=== PATIENT | male | born 1940 | race Caucasian/White ===

== ENCOUNTER 2021-02-04 00:16 | Emergency (ER) | payer BC, OTHER ==
[~2021-02-04] VITALS: Ht 160 cm; Wt 68.0 kg
[2021-02-04 01:00] VITALS: BP 115/71
[2021-02-04] MEDS ORDERED: ONDA4TAB5 PO (01:06)
[2021-02-04] MEDS ORDERED: CEPH500T PO (01:06)
== END 2021-02-04 01:16 | disposition home or self-care (01) ==
LOC: ER 00:29
DX: T63.481A Toxic effect of venom of other arthropod, accidental (unintentional), initial encounter (principal); L03.114 Cellulitis of left upper limb; Z79.899 Other long term (current) drug therapy; Y92.89 Other specified places as the place of occurrence of the external cause

== ENCOUNTER 2023-03-05 18:18 | Emergency (ER) | payer OTHER ==
[~2023-03-05] VITALS: Ht 160 cm; Wt 68.9 kg
[~2023-03-05 18:18] MED LIST: CEPH500T PO; ONDA4TAB5 PO
[2023-03-05] MEDS ORDERED: diphenhydrAMINE HCL 50 MG CAPSULE ONE (20:27)
[2023-03-05] MEDS ORDERED: diphenhydrAMINE HCL 25 MG CAPSULE PO ONE (20:30)
[2023-03-05] MEDS ORDERED: HYDR453. TP (21:20)
[2023-03-05 21:32] VITALS: BP 130/85; TEMP 98.4; O2SAT 98
== END 2023-03-05 21:31 | disposition home or self-care (01) ==
LOC: ER 18:30
DX: T63.441A Toxic effect of venom of bees, accidental (unintentional), initial encounter (principal); Y92.89 Other specified places as the place of occurrence of the external cause
CPT/HCPCS: 99282; Q0163